=== PATIENT | female | born 2000 | race Two or more races ===

== ENCOUNTER 2022-09-26 11:48 | Emergency (ER) | payer MEDICAID, OTHER ==
[~2022-09-26] VITALS: Ht 175.3 cm; Wt 62.6 kg
[2022-09-26 14:32] LABS: Urine Bacteria NONE SEEN /hpf (None Seen); Urine Blood Negative /uL (Negative); Urine Specific Gravity 1.017 (1.001-1.035); Urine WBC 1 /hpf (0 - 5)
[2022-09-26] MEDS ORDERED: TRAM-297 PO (17:00)
[2022-09-26 18:27] VITALS: BP 108/66
== END 2022-09-26 18:28 | disposition home or self-care (01) ==
LOC: ER 11:48
DX: R10.2 Pelvic and perineal pain (principal); Z79.899 Other long term (current) drug therapy
CPT/HCPCS: 36415; 76830; 76856; 81001